=== PATIENT | male | born 1960 | race Caucasian/White ===

== ENCOUNTER 2019-12-27 16:53 | Inpatient (IN) | payer MEDICARE, SELFPAY ==
[2019-12-27] VITALS (16 sets, daily range): BP systolic 85–138; BP diastolic 58–97; PULSE 85–106; RESP 15–20; TEMP 36.6–37.2; O2SAT 96–100; BMI 26.6; BMI 28.1
--- NOTE | 2019-12-27 17:05 | CT_ITS ---
PROCEDURE: CT ABDOMEN PELVIS WO CON CLINICAL INDICATION: WEAK Diarrhea, weakness, fever COMPARISON: No exams were available for comparison TECHNIQUE: Axial images obtained with sagittal and coronal reformats. All CT scans at the facility use one or more dose reduction, viz: automated exposure control, ma/kV adjustment per patient size (including targeted exams where dose is matched to indication, i.e. head), or iterative reconstruction technique. FINDINGS: The liver has an unremarkable appearance other than low-density changes near the falciform ligament which may be due to fatty infiltration. The gallbladder is distended with some increased density which may be due to sludge with small stones. Ultrasound may confirm. The spleen, adrenal glands, pancreas, and kidneys have an unremarkable appearance. No evidence of appendicitis. There is a small umbilical hernia containing fat. There is colonic diverticulosis but no evidence of diverticulitis. Guillory catheter is present. The there is mild ectasia of the infrarenal abdominal aorta measuring up to 2.4 cm. IMPRESSION: Distended gallbladder with possible sludge/stones. Gallbladder ultrasound may provide further evaluation. Colonic diverticulosis without diverticulitis. Dictated by: Ron Mercedes MD 12/28/2019 07:46 Electronically signed by Ron Mercedes MD in [place] 12/28/2019 07:46
--- NOTE | 2019-12-27 17:06 | CT_ITS ---
PROCEDURE: CT CHEST WO CON CLINICAL INDICATION: FEVER Shortness of breath, fever, weakness COMPARISON: CT ABDOMEN PELVIS WO CON from 12/27/2019 TECHNIQUE: Axial images obtained with sagittal and coronal reformats. All CT scans at the facility use one or more dose reduction, viz: automated exposure control, ma/kV adjustment per patient size (including targeted exams where dose is matched to indication, i.e. head), or iterative reconstruction technique. FINDINGS: HEART AND MEDIASTINAL STRUCTURES: The left lobe of the thyroid gland is enlarged with a hypodense nodule measuring 3 cm. There is mild compression upon the trachea with mild tracheal shift to the right. Suggest ultrasound for further evaluation. No adenopathy apparent. There is severe coronary artery calcification noted. LUNGS AND PLEURAL SPACES: COPD. In the left upper lobe there is a cluster of nodules in the posterior segment associated with an irregular density. The small nodules measure up to 6 mm. There air Passy has a stellate appearance measuring up to 7 mm centrally but with small irregular striations extending from this region. This could be due to scar or neoplasm. Multiple soft tissue nodules are present in the left lower lobe. These are difficult to measure due to their conglomerate nature but measure up to 3 cm by 1.7 cm. There is some scarring/atelectatic change in left lung base posteriorly and inferiorly. There is a 5 mm nodule in the left apex. Patchy atelectasis or infiltrate noted in the superior segment of the right lower lobe with a subpleural nodule in this region measuring 5 mm. No effusions are evident. There is some mild left basilar bronchiectasis with bronchial thickening in the left lung base BONY STRUCTURES: There are old right-sided rib fractures. There is deformity of both humeral heads and glenoid fossa possibly due to Charcot joint with moderate-sized effusions in the shoulder joints. UPPER ABDOMEN: Unremarkable. ADDITIONAL FINDINGS: No other significant abnormalities. IMPRESSION: 1. Left-sided pulmonary nodules the largest in the lower lobes. Neoplasm is considered. Possible metastatic disease. Infection/inflammation changes also consideration. Consider bronchoscopy. 2. Bronchiectatic changes in the left lower lobe posteriorly with bronchial thickening with COPD 3. Enlarged left lobe of the thyroid gland with left thyroid nodule. Consider ultrasound. 4. Deformity of the glenohumeral joint bilaterally with bony resorption of the humeral heads and prominent shoulder joint effusions. Consider Charcot/neuro trophic joint Dictated by: Ron Mercedes MD 12/28/2019 07:41 Electronically signed by Ron Mercedes MD in [place] 12/28/2019 07:42
[2019-12-27 17:15] LABS: Adenovirus,PCR Not Detected (NotDetected); Bordetella Pertussis Not Detected (NotDetected); Chlamydophila Pneumoniae, PCR Not Detected (NotDetected); Coronavirus 19, PCR Not Detected (NotDetected); Coronavirus 229E Not Detected (NotDetected); Coronavirus NL63 Not Detected (NotDetected); Coronavirus OC43 Not Detected (NotDetected); Coronovirus HKU1,PCR Not Detected (NotDetected); Human Metapneumovirus Not Detected (NotDetected); Influenza A, PCR Not Detected (NotDetected); Influenza AH1, 2009 Not Detected (NotDetected); Influenza AH1, PCR Not Detected (NotDetected); Influenza AH3,PCR Not Detected (NotDetected); Influenza B, PCR Not Detected (NotDetected); Mycoplasma Pneumoniae, PCR Not Detected (NotDected); Parainfluenza 1, PCR Not Detected (NotDetected); Parainfluenza 2, PCR Not Detected (NotDetected); Parainfluenza 3, PCR Not Detected (NotDetected); Parainfluenza 4, PCR Not Detected (NotDetected); Respiratory Syncytial Virus Not Detected (NotDetected); Rhinovirus/Enterovirus Not Detected (NotDetected)
[2019-12-27 17:40] LABS: Microscopic, Urine URINE MICROSCOPIC (MICROSCOPIC)
[2019-12-27 17:42] LABS: Basophils % 0.4 % (0.1-2.0); Eosinophils # 0.1 K/mm3 (0.0-0.4); Eosinophils % 0.7 % (0.1-12.0); Hematocrit 38.4 % (42.0-52.0); Hemoglobin 12.1 g/dL (14.1-18.0); Lymphocytes # 2.2 K/mm3 (0.7-4.5); Lymphocytes % 21.9 % (10-50); Mean Corpuscular HGB Conc 31.5 g/dL (31.8-35.4); Mean Corpuscular Hemoglobin 29.7 pg (27.0-31.2); Mean Corpuscular Volume 94.3 fl (80-94); Mean Platelet Volume 8.5 fl (7.4-10.4); Monocytes # 0.4 K/mm3 (0.1-1.0); Neutrophils # 7.4 K/mm3 (1.8-7.8); Platelet Count 212 K/mm3 (142-424); Red Blood Count 4.07 M/mm3 (4.60-6.20); Red Cell Distribution Width 18.5 % (11.5-17.5); White Blood Count 10.2 K/mm3 (4.8-10.8)
[2019-12-27 17:45] LABS: Appearance,Urine CLOUDY (Clear); Bilirubin,Urine Negative (Negative); Blood, Urine TRACE-I (Negative); Color,Urine YELLOW (Yellow); Glucose,Urine (UA) Negative (Negative); Ketones,Urine Negative (Negative); Leukocyte Esterase,Urine 2+ (Negative); Nitrate,Urine Negative (Negative); PH,Urine 6.5 (5.0-8.5); Protein,Urine 1+ (Negative); Specific Gravity, Urine 1.015 (1.005-1.030); Urobilinogen,Urine 0.2 EU/dl (0.2)
[2019-12-27 17:48] LABS: Amorphous Sediment,Urine 2+ /lpf; WBC,Urine 50-100 #/hpf (0-3)
--- NOTE | 2019-12-27 18:00 | PC.NURSE ---
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 After coming to the pt beside in rad pt had just come to. Pt was pale and diaphoretic stated he felt like he had just passed out. Phone MD and verbal consent for CT was obtained.
--- NOTE | 2019-12-27 18:03 | CT_ITS ---
PROCEDURE: CT HEAD/BRAIN WO CON CLINICAL INDICATION: SEIZURE COMPARISON: No exams were available for comparison TECHNIQUE: Axial images obtained. All CT scans at the facility use one or more dose reduction, viz: automated exposure control, ma/kV adjustment per patient size (including targeted exams where dose is matched to indication, i.e. head), or iterative reconstruction technique. FINDINGS: No midline shift, mass effect, intracranial hemorrhage, hydrocephalus, or extra-axial fluid collection is evident. The calvarium has an unremarkable appearance. No mastoid effusion. No sinus air-fluid level. IMPRESSION: No acute intracranial finding Dictated by: Ron Mercedes MD 12/28/2019 07:17 Electronically signed by Ron Mercedes MD in [place] 12/28/2019 07:17
[2019-12-27 18:06] LABS: Erythrocyte Sedimentation Rate 19 mm/hr (0-20)
--- NOTE | 2019-12-27 18:37 | ECG_ITS ---
APPROVED REPORT Exam: Resting ECG HR:95 bpm ECG Measurements Heart Rate 95 AXES UT 148 P 21 QRSd 128 QRS -66 QT 404 T -18 QTc 507 <Conclusion> Normal sinus rhythm Left axis deviation Right bundle branch block Abnormal ECG Electronically signed by : Antonio Lauren, 01/01/2020 17:13:21
[2019-12-27 18:53] LABS: Chloride 108 mmol/L (98-107); Potassium 4.3 mmoL/L (3.5-5.1); Sodium 138 mmol/L (136-145)
[2019-12-27 18:56] LABS: Alanine Aminotransferase 28 U/L (12-78); Albumin Level 3.4 g/dl (3.5-5.0); Albumin/Globulin Ratio 1.3 (1.1-1.8); Alkaline Phosphatase 103 U/L (38-126); Anion Gap 16.3 mEq/L (5-15); Aspartate Amino Transferase 39 U/L (17-59); Bilirubin,Total 0.5 mg/dl (0.2-1.3); Blood Urea Nitrogen 9 mg/dl (9-20); Calcium 8.4 mg/dl (8.4-10.2); Carbon Dioxide 18 mmol/L (22.0-30.0); Creatinine Clearance Estimated 107 mL/min (50-200); Estimated Glomerular Filt Rate 99 ml/min (>60); GFR (African American) 119 ML/MIN (>60); Globulin 2.7 g/dL (1.3-3.2); Glucose 110 mg/dl (74-100); Total Protein,Serum 6.1 g/dl (6.3-8.2)
[2019-12-27 19:02] LABS: C-Reactive Protein 18.8 mg/L (0-4)
[2019-12-27 19:11] LABS: Troponin I 0.61 ng/ml (0.00-0.034)
--- NOTE | 2019-12-27 19:13 | PC.NURSE ---
Levophed started at 5mcg/min, pt provided ice chips, no needs at this time
--- NOTE | 2019-12-27 19:15 | PC.NURSE ---
Decubitus noted to taylor. heels and coccyx. Heels dressed with vasiline soaked gauze.
--- NOTE | 2019-12-27 19:21 | HMH.EDWEAK ---
ED Disposition Clinical Impression: UTI (urinary tract infection), Hypotension, SIRS (systemic inflammatory response syndrome), Pulmonary emboli Disposition: Admitted as Observation Condition on Discharge: Serious Referrals: Jose R Moreira [Primary Care Provider] - - Critical Care Critical Care Time: Yes Attestation: On 12/27/19, the high probability of a clinically significant, sudden or life threatening deterioration of the following system(s) required my full and direct attention, intervention and personal management. The time I documented below is in addition to time spent performing reported procedures but includes the following listed in this critical care notation. Total Critical Care Time: 55 Vital system(s) involved:: Circulatory Failure, Shock (Septic) My critical care processes included: Assessment & monitoring of V/S, Initial and Re-exams, Data Review/Interpretation, Coordinating Care, Medication Orders and management, Documentation Medical Decision Making - Medical Records Medical records reviewed: Yes: I reviewed the patient's medical records. - Lv Inquiry Pt receiving controlled substance: No Vital Signs: 12/27/19 16:54 12/27/19 17:24 12/27/19 18:00 Temperature 99 F Temperature Source Oral Pulse Rate [Right] 104 H 96 H 96 H Respiratory Rate 20 20 20 Blood Pressure [Right Arm] 96/68 L 90/58 L 93/69 L Blood Pressure Mean [Right Arm] 77 68 77 Blood Pressure Source [Right Arm] Automatic Cuff Blood Pressure Position [Right Arm] Sitting 02 Sat by Pulse Oximetry 100 98 98 Oxygen Delivery Method Nasal Cannula Room Air Nasal Cannula Oxygen Flow Rate (LPM) 2 12/27/19 19:14 Temperature Temperature Source Pulse Rate [Right] 95 H Respiratory Rate 15 Blood Pressure [Right Arm] 89/66 L Blood Pressure Mean [Right Arm] 73 Blood Pressure Source [Right Arm] Blood Pressure Position [Right Arm] 02 Sat by Pulse Oximetry 97 Oxygen Delivery Method Nasal Cannula Oxygen Flow Rate (LPM) 2 - Lab Data Lab results reviewed: Yes: I reviewed the patient's lab results. Lab Results 12/27/19 17:10: Chlamy pneumoniae PCR Not detected, Adenovirus (PCR) Not detected, B. pertussis DNA (PCR) Not detected, Coronavirus OC43 (PCR) Not detected, Coronavirus HKU1 (PCR) Not detected, Coronavirus 229E (PCR) Not detected, COVID-19 PCR Not detected, Coronavirus NL63 (PCR) Not detected, Human Metapneumovir PCR Not detected, Influenza A (H1) PCR Not detected, Influ A (H1N1/09) PCR Not detected, Influenza A (H3) PCR Not detected, Influenza Type A (PCR) Not detected, Influenza Type B (PCR) Not detected, M. pneumoniae (PCR) Not detected, Parainfluenza 1 (PCR) Not detected, Parainfluenza 2 (PCR) Not detected, Parainfluenza 3 (PCR) Not detected, Parainfluenza 4 (PCR) Not detected, RSV (PCR) Not detected, Entero/Rhino (PCR) Not detected 12/27/19 17:25: WBC 10.2, RBC 4.07 L, Hgb 12.1 L, Hct 38.4 L, MCV 94.3 H, MCH 29.7, MCHC 31.5 L, RDW 18.5 H, Plt Count 212, MPV 8.5, Neut % (Auto) 73.0, Lymph % (Auto) 21.9, Emery % (Auto) 4.0, Eos % (Auto) 0.7, Baso % (Auto) 0.4, Neut # (Auto) 7.4, Lymph # (Auto) 2.2, Emery # (Auto) 0.4, Eos # (Auto) 0.1, Baso # (Auto) 0.0, ESR 19 12/27/19 17:25: Lactate 2.0 12/27/19 17:35: Urine Color Yellow, Urine Appearance Cloudy, Urine pH 6.5, Ur Specific [place] 1.015, Urine Protein 1+, Urine Glucose (UA) Negative, Urine Ketones Negative, Urine Blood Trace-i, Urine Nitrate Negative, Urine Bilirubin Negative, Urine Urobilinogen 0.2, Ur Leukocyte Esterase 2+ A, Urine RBC 3-5, Urine WBC 50-100, Amorphous Sediment 2+ 12/27/19 18:40: Sodium 138, Potassium 4.3, Chloride 108 H, Carbon Dioxide 18 L, Anion Gap 16.3 H, BUN 9, Creatinine 0.80, Estimated Creat Clear 107, Estimated GFR 99, Est GFR ( Amer) 119, Glucose 110 H, Calcium 8.4, Total Bilirubin 0.5, AST 39, ALT 28, Alkaline Phosphatase 103, Troponin I 0.61 H, C-Reactive Protein 18.8 H, Total Protein 6.1 L, Albumin 3.4 L, Globulin 2.7, Albumin/Globulin Ratio 1.3 Re
--- NOTE | 2019-12-27 19:23 | ECG_ITS ---
APPROVED REPORT Exam: Resting ECG HR:93 bpm ECG Measurements Heart Rate 93 AXES IA 150 P 30 QRSd 124 QRS -69 QT 392 T -31 QTc 487 <Conclusion> Normal sinus rhythm Left axis deviation Right bundle branch block Old inferior changes Abnormal ECG Electronically signed by : Antonio Lauren, 01/01/2020 17:13:18
--- NOTE | 2019-12-27 19:26 | PC.NURSE ---
EKGs sent to Dr. Anderson .
--- NOTE | 2019-12-27 19:27 | PC.NURSE ---
speaking with Dr. Anderson.
--- NOTE | 2019-12-27 19:29 | PC.NURSE ---
Consulting with Dr. Lauren.
--- NOTE | 2019-12-27 19:30 | PC.NURSE ---
pt Levophed increased from 5mcg/min to 10 mcg/min
--- NOTE | 2019-12-27 20:15 | PC.NURSE ---
Increased Nitro gtt to 30 mcg/min
--- NOTE | 2019-12-27 21:08 | PC.NURSE ---
levophed gtt decreased to 5 mcg/min
--- NOTE | 2019-12-27 21:37 | PC.NURSE ---
Levophed decreased to 2 mcg/min
--- NOTE | 2019-12-27 21:49 | PC.NURSE ---
Levophed turned off at this time.
--- NOTE | 2019-12-27 22:09 | PC.NURSE ---
patient up to floor via stretcher.
[2019-12-27 22:15] LABS: Troponin I 0.69 ng/ml (0.00-0.034)
[2019-12-28] VITALS (21 sets, daily range): BP systolic 76–120; BP diastolic 49–91; PULSE 90–117; RESP 16–24; TEMP 36.6–37.1; O2SAT 90–97; BMI 29.3
--- NOTE | 2019-12-28 03:07 | PC.NURSE ---
Pt awake, currently resting in bed. Arrived to floor off Levophed gtt. Was DC in ER. Pt BP has been stable since arrival to floor. Currently 100/82. P 93. He has remained sinus Tach on telemetry with BBB. Pt has c/o soa at times this shift. It has been noted while pt has experienced increased soa, pt position in bed would be probable cause. Pt repositioned t/o shift. O2 sats have remained mid to upper 90s. He is currently on 2L O2 NC. notified early in shift of elevated troponins. Additional troponin cancelled. Pt requested to have home medication, gabapentin 800 mg and suboxone 4 mg. also notified that pt was not ordered maintenance fluids. New orders: Gabapentin 400 mg PO one time due to previous hypertension. Subutex 4 mg PO. LR @ 200 ml/hr. F/C draining to bedside. Call light within reach, seizure pads in place. Family remains at bedside. Will continue to monitor.
[2019-12-28 05:41] LABS: Basophils # 0.1 K/mm3 (0-0.2); Basophils % 0.3 % (0.1-2.0); Eosinophils # 0.1 K/mm3 (0.0-0.4); Eosinophils % 0.7 % (0.1-12.0); Hemoglobin 12.2 g/dL (14.1-18.0); Lymphocytes # 2.6 K/mm3 (0.7-4.5); Lymphocytes % 18.6 % (10-50); Mean Corpuscular HGB Conc 31.3 g/dL (31.8-35.4); Mean Corpuscular Hemoglobin 29.6 pg (27.0-31.2); Mean Corpuscular Volume 94.6 fl (80-94); Mean Platelet Volume 7.9 fl (7.4-10.4); Monocytes # 0.8 K/mm3 (0.1-1.0); Neutrophils # 10.4 K/mm3 (1.8-7.8); Neutrophils % 74.4 % (37.0-80.0); Platelet Count 189 K/mm3 (142-424); Red Blood Count 4.12 M/mm3 (4.60-6.20); Red Cell Distribution Width 18.3 % (11.5-17.5); White Blood Count 13.9 K/mm3 (4.8-10.8)
[2019-12-28 06:01] LABS: Alanine Aminotransferase 49 U/L (12-78); Albumin Level 3.5 g/dl (3.5-5.0); Albumin/Globulin Ratio 1.3 (1.1-1.8); Alkaline Phosphatase 116 U/L (38-126); Anion Gap 18.3 mEq/L (5-15); Aspartate Amino Transferase 70 U/L (17-59); Bilirubin,Total 0.5 mg/dl (0.2-1.3); Blood Urea Nitrogen 8 mg/dl (9-20); Calcium 9.1 mg/dl (8.4-10.2); Carbon Dioxide 19 mmol/L (22.0-30.0); Chloride 105 mmol/L (98-107); Creatinine Clearance Estimated 135 mL/min (50-200); Estimated Glomerular Filt Rate 115 ml/min (>60); GFR (African American) 139 ML/MIN (>60); Globulin 2.6 g/dL (1.3-3.2); Potassium 4.3 mmoL/L (3.5-5.1); Sodium 138 mmol/L (136-145); Total Protein,Serum 6.1 g/dl (6.3-8.2)
[2019-12-28 06:05] LABS: Glucose 87 mg/dl (74-100)
--- NOTE | 2019-12-28 08:05 | CT_ITS ---
PROCEDURE: CT ANGIO CHEST CLINCIAL INDICATION: dyspnea/hypoxia Dyspnea, hypoxia COMPARISON: CT CHEST WO NUBIA from 12/27/2019 TECHNIQUE: IV Contrast: 70ML OPTIRAY 350 Axial images obtained with sagittal and coronal reformats. All CT scans at the facility use one or more dose reduction, viz: automated exposure control, ma/kV adjustment per patient size (including targeted exams where dose is matched to indication, i.e. head), or iterative reconstruction technique. FINDINGS: There is acute bilateral pulmonary emboli. A small saddle embolus is present in the bifurcation of the main pulmonary artery with moderate pulmonary emboli within the distal aspect of the right main pulmonary artery and in the upper and lower branches as well as the distal aspect of the left main pulmonary artery also in upper and lower lobe branches. There is flattening of the interventricular septum. There is only minimal amount of reflux into the IVC however, IVC is mildly enlarged which may indicate some degree of right heart strain. IVC measures up to 3 cm. There is now small right pleural effusion. There has been no significant change in the previously described pulmonary nodules in the left lower lobe. There is trace left effusion is well with mild atelectatic changes in the lung bases. The patchy density is noted in the upper lobes posteriorly and in the superior segment of the right lower lobe. Enlarged left lobe of the thyroid gland with 3 cm nodule. Bilateral Charcot joints of the shoulders. There are old right-sided rib fractures. Gallbladder is distended with some increased density in the gallbladder which may be due to sludge and/or stones. IMPRESSION: 1. Acute moderate bilateral pulmonary emboli with questionable right heart strain. There is a small saddle embolus which extends into the bifurcation of both main pulmonary arteries and into the proximal upper and lower lobe branches 2. Trace right effusion. 3. Multiple left lower lobe nodular opacities which could be neoplastic or infectious/inflammatory. 4. Enlarged left lobe of the thyroid gland with 3 cm nodule. 5. Bilateral Charcot joint of the shoulders 6. The report was given to Maria Dolores Khan on 2nd floor 12/28/2019 at 10 a.m. Dictated by: Ron Mercedes MD 12/28/2019 10:02 Electronically signed by Ron Mercedes MD in [place] 12/28/2019 10:02
--- NOTE | 2019-12-28 08:08 | HMH.HP ---
*Admission Date: 12/27/19 *Chief complaint: Hypotension/dyspnea *History of present illness: 59-year-old white male with significant medical history of multiple immunosuppressive diseases including rheumatoid arthritis, Sjogren's syndrome, along with chronic Suboxone dependence and history of multiple neuropathy type symptoms. He notes that over the past week or so he has had progressive dyspnea, feelings of increasing anxiety and problems breathing when sleeping. [place] so badly in regards to the breathing issues that he came to the emergency department late yesterday. Found to be hypotensive, tachycardic, met sepsis criteria, found to have source of infection in his urinary tract. Patient has a history of BPH, takes alpha blockade for this and notes he chronically has problems voiding. Patient was also found to have elevated troponins. Cardiology was consulted by phone who recommended treating patient for PE and patient was given a dose of Lovenox. CT scan of chest showed nodules which patient is aware of and his primary physician in [place] is also aware of. CT otherwise was unremarkable, however this was a noncontrast CT scan. D-dimer was not done. Patient was admitted to stepdown unit with intravenous fluids and after 30 mg/kg bolus for hypotensive sepsis issues was given he was still hypotensive and Levophed was started for several hours. Before leaving the ER this was able to be discontinued. Patient is currently on stepdown unit here on second floor. He feels better, but continues to struggle with breathing, especially when he tries to go to sleep and reports that he is having some chest pressure. [facility] History I have reviewed the patient's past medical history: Yes Medical History: Reports:: Atrial Fibrillation, Hypertension Denies:: Cancer, Diabetes Mellitus Type 1, Diabetes Mellitus Type 2 *Have you ever received a pneumonia vaccine?: Yes *Have you received a flu vaccine this season?: Yes Other Medical History: Reports: Arthritis, Fibromyalgia Comment:: Patient has a history of negative cardiac work-up 3 or 4 years ago Other Surgeries: Yes: Colonoscopy, Colon Resection - *Social History Smoking Status: Current every day smoker Tobacco Type: cigarettes # Packs/Day (cigarettes): 2 Alcohol Intake: never Substance Use Type: prescription drug *Occupational Status:: disabled *Travel in the last 8 weeks: None Family Hx:: Cancer, Coronary Artery Disease, Diabetes, Heart Attack, Hyperlipidemia, Hypertension, Substance abuse, Mental illness Review of Systems - Review of Systems Review of systems:: pertinent systems reviewed and negative unless documented below - Constitutional Reports fever(s), Reports weakness - ENT Denies abnormal hearing, Denies poor balance - *Cardiovascular Reports chest pain, Reports shortness of breath, Reports shortness of breath with activity - *Respiratory Reports shortness of breath with activity - *Gastrointestinal Reports abdominal pain - *Genitourinary Reports difficulty urinating Meds Home Medications Medication Instructions Recorded Confirmed Type Buprenorphine HCl/Naloxone HCl 1.5 each SL DAILY 12/27/19 12/27/19 History [Suboxone 8 mg-2 mg Sl Film] Gabapentin [Neurontin 800mg Tab] 800 mg PO QID 12/27/19 12/27/19 History Hydroxychloroquine Sulfate 200 mg PO BID 12/27/19 12/27/19 History [Plaquenil 200mg tablet] Nebivolol HCl [Bystolic] 10 mg PO DAILY 12/27/19 12/27/19 History Terazosin HCl [Hytrin 5mg capsule] 5 mg PO BID 12/27/19 12/27/19 History predniSONE [Deltasone 10mg 10 mg PO DAILY 12/27/19 12/27/19 History tablet] Allergies Allergy/AdvReac Type Severity Reaction Status Date / Time NSAIDS (Non-Steroidal Allergy Verified 12/27/19 17:05 Anti-Inflamma Penicillins Allergy Verified 12/27/19 17:05 Sulfa (Sulfonamide Allergy Verified 12/27/19 17:05 Antibiotics) Exam Vital signs and Labs for Last 24 Hours: Temp Pulse Re
[2019-12-28 11:30] LABS: Activated Partial Thrombo Time 24.8 seconds (23.6-34.0)
--- NOTE | 2019-12-28 11:49 | P.CONPHA_ITS ---
[facility] Pharmacy VTE Monitoring - Patient Demographics Admission date: 12/28/19 Report Date: 12/28/19 Time: 11:50 Allergies/Adverse Reactions: Patient Allergies NSAIDS (Non-Steroidal Anti-Inflamma Allergy (Verified 12/27/19 17:05) Penicillins Allergy (Verified 12/27/19 17:05) Sulfa (Sulfonamide Antibiotics) Allergy (Verified 12/27/19 17:05) Height: 1.7 m Weight: 84.822 kg Patient Problems: Current Active Problems UTI (urinary tract infection) (Acute) Hypotension (Acute) SIRS (systemic inflammatory response syndrome) (Acute) Pulmonary emboli (Acute) Non-STEMI (non-ST elevated myocardial infarction) (Acute) Dyspnea (Acute) Hypoxia (Acute) - VTE Risk Labs: VTE Related Lab Results Hgb 12.2 g/dL (14.1-18.0) L 12/28/19 05:25 Hct 39.0 % (42.0-52.0) L 12/28/19 05:25 Plt Count 189 K/mm3 (142-424) 12/28/19 05:25 APTT 24.8 seconds (23.6-34.0) 12/28/19 11:00 BUN 8 mg/dl (9-20) L 12/28/19 05:25 Creatinine 0.70 mg/dl (0.66-1.25) 12/28/19 05:25 Estimated Creat Clear 135 mL/min (50-200) 12/28/19 05:25 VTE Risk Level: High Risk - Prophylaxis Types of VTE Prophylaxis: Pharmacological Location of Applied Device: Not Applicable - VTE Diagnosis Confirmed Treatment or plan recommended: Add Heparin, Add other medication (HEPARIN AND XARELTO ORDERED BY )
--- NOTE | 2019-12-28 11:52 | HMH.PHAHEP ---
[facility] Pharmacy Heparin Dosing - Demographic Data Admission date:: 12/28/19 Date: 12/28/19 Time: 11:52 Allergies/Adverse Reactions: Allergies Allergy/AdvReac Type Severity Reaction Status Date / Time NSAIDS (Non-Steroidal Allergy Verified 12/27/19 17:05 Anti-Inflamma Penicillins Allergy Verified 12/27/19 17:05 Sulfa (Sulfonamide Allergy Verified 12/27/19 17:05 Antibiotics) Height: 1.7 m Weight: 84.822 kg - Indication Medication therapy:: Heparin ( ALSO STARTING XARELTO) Patient Problems: Current Active Problems UTI (urinary tract infection) (Acute) Hypotension (Acute) SIRS (systemic inflammatory response syndrome) (Acute) Pulmonary emboli (Acute) Non-STEMI (non-ST elevated myocardial infarction) (Acute) Dyspnea (Acute) Hypoxia (Acute) CVA?: No Bleeding problem?: No Kidney disease?: No SD?: No Desired PTT range:: 60-80 seconds - Labs Anticoagulation Lab Results:: 12/27/19 12/28/19 17:25 05:25 Hgb 12.1 L 12.2 L Hct 38.4 L 39.0 L Plt Count 212 189 - Monitoring Dose Monitor 1 Date: 12/28/19 Time: 11:53 PTT Result:: 24.8 Infusion Rate:: 1300 UNITS/HR (26 ML/HR) Comment:: 5000 UNIT BOLUS - Core Measures Is INR > or = 2 at discharge?: No Most Recent Labs:: Laboratory Results - last 24 hr 12/27/19 17:10: Chlamy pneumoniae PCR Not detected, Adenovirus (PCR) Not detected, B. pertussis DNA (PCR) Not detected, Coronavirus OC43 (PCR) Not detected, Coronavirus HKU1 (PCR) Not detected, Coronavirus 229E (PCR) Not detected, COVID-19 PCR Not detected, Coronavirus NL63 (PCR) Not detected, Human Metapneumovir PCR Not detected, Influenza A (H1) PCR Not detected, Influ A (H1N1/09) PCR Not detected, Influenza A (H3) PCR Not detected, Influenza Type A (PCR) Not detected, Influenza Type B (PCR) Not detected, M. pneumoniae (PCR) Not detected, Parainfluenza 1 (PCR) Not detected, Parainfluenza 2 (PCR) Not detected, Parainfluenza 3 (PCR) Not detected, Parainfluenza 4 (PCR) Not detected, RSV (PCR) Not detected, Entero/Rhino (PCR) Not detected 12/27/19 17:25: WBC 10.2, RBC 4.07 L, Hgb 12.1 L, Hct 38.4 L, MCV 94.3 H, MCH 29.7, MCHC 31.5 L, RDW 18.5 H, Plt Count 212, MPV 8.5, Neut % (Auto) 73.0, Lymph % (Auto) 21.9, [place] % (Auto) 4.0, Eos % (Auto) 0.7, Baso % (Auto) 0.4, Neut # (Auto) 7.4, Lymph # (Auto) 2.2, [place] # (Auto) 0.4, Eos # (Auto) 0.1, Baso # (Auto) 0.0, ESR 19 12/27/19 17:25: Lactate 2.0 12/27/19 17:35: Urine Color Yellow, Urine Appearance Cloudy, Urine pH 6.5, Ur Specific [place] 1.015, Urine Protein 1+, Urine Glucose (UA) Negative, Urine Ketones Negative, Urine Blood Trace-i, Urine Nitrate Negative, Urine Bilirubin Negative, Urine Urobilinogen 0.2, Ur Leukocyte Esterase 2+ A, Urine RBC 3-5, Urine WBC 50-100, Amorphous Sediment 2+ 12/27/19 18:40: Sodium 138, Potassium 4.3, Chloride 108 H, Carbon Dioxide 18 L, Anion Gap 16.3 H, BUN 9, Creatinine 0.80, Estimated Creat Clear 107, Estimated GFR 99, Est GFR ( Amer) 119, Glucose 110 H, Calcium 8.4, Total Bilirubin 0.5, AST 39, ALT 28, Alkaline Phosphatase 103, Troponin I 0.61 H, C-Reactive Protein 18.8 H, Total Protein 6.1 L, Albumin 3.4 L, Globulin 2.7, Albumin/Globulin Ratio 1.3 12/27/19 21:40: Troponin I 0.69 H 12/28/19 05:25: WBC 13.9 H D, RBC 4.12 L, Hgb 12.2 L, Hct 39.0 L, MCV 94.6 H, MCH 29.6, MCHC 31.3 L, RDW 18.3 H, Plt Count 189, MPV 7.9, Neut % (Auto) 74.4, Lymph % (Auto) 18.6, [place] % (Auto) 6.0, Eos % (Auto) 0.7, Baso % (Auto) 0.3, Neut # (Auto) 10.4 H, Lymph # (Auto) 2.6, [place] # (Auto) 0.8, Eos # (Auto) 0.1, Baso # (Auto) 0.1 12/28/19 05:25: Sodium 138, Potassium 4.3, Chloride 105, Carbon Dioxide 19 L, Anion Gap 18.3 H, BUN 8 L, Creatinine 0.70, Estimated Creat Clear 135, Estimated GFR 115, Est GFR ( Amer) 139, Glucose 87 D, Calcium 9.1, Total Bilirubin 0.5, AST 70 H D, ALT 49 D, Alkaline Phosphatase 116, Total Protein 6.1 L, Albumin 3.5, Globulin 2.6, Albumin/Globulin Ratio 1.3 12/28/19 11:00: APTT 24.8 Were Heparin
--- NOTE | 2019-12-28 14:21 | PC.NURSE ---
1007- Notified Dr Lauren of CT chest results, moderate sized BL pulmonary emboli, small saddle embolus that extends into bifurcation of both pulmonary arteries, poosible right heart strain. Given order for heparin gtt to be dosed per pharmacy, start xarelto 15mg po BID, and increase rate of LR to 150ml/hr. 1110- baseline ptt drawn per lab, given 5000unit bolus of heparin IV and started on heparin drip at 1300units/hr per pharmacy dosing 1153- Notified Dr Lauren that patient is becoming hypotensive, his systolic had been in the 90's but have recently decreased to the high 80's with a MAP around 66 and is continuing to decrease, BP at current time 76/54, HR 95-115 MAP 63, given order to start levophed gtt and to give patient 1 liter bolus of Normal Saline, states he will speak with Dr Anderson for further recommendations 1155- Dr Lauren called to state that Dr Anderson recommends to transfer patient to and he will contact them to initiate transfer 1205- Levophed gtt started at 8mcg, current BP 85/49 MAP 67 1228- Dr Lauren called with bed update from , patient has been accepted by Dr Mando Maddox and has a bed assignment at in ICU, patient will need to be transported per helicopter 1230- called with bed assignment, patient will be transferred to 8th Floor ICU [facility] Room 230 1236- Attempt made to call report, Ekta RN states to call back in 10 minutes for report 1246- Second attempt to call report made at this time, Ekta RN states she is with another patient, to call back in 15 minutes, informed Ekta that I would be calling helicopter for transport but would call back to give report 1250- BP decreasing 85/68, increased levophed to 10mcg 1302- Report called to Ekta ZAPATA at ICU, [facility] states 14 minute ETA 1330- [facility] arrived to floor for patient 1342- [facility] leaving floor with patient
--- NOTE | 2020-01-01 10:15 | [facility].DCSUM ---
General - General Admission date:: 12/27/19 Discharge date: 12/28/19 HPI HPI: 59-year-old white male with significant medical history of multiple immunosuppressive diseases including rheumatoid arthritis, Sjogren's syndrome, along with chronic Suboxone dependence and history of multiple neuropathy type symptoms. He notes that over the past week or so he has had progressive dyspnea, feelings of increasing anxiety and problems breathing when sleeping. [place] so badly in regards to the breathing issues that he came to the emergency department late yesterday. Found to be hypotensive, tachycardic, met sepsis criteria, found to have source of infection in his urinary tract. Patient has a history of BPH, takes alpha blockade for this and notes he chronically has problems voiding. Patient was also found to have elevated troponins. Cardiology was consulted by phone who recommended treating patient for PE and patient was given a dose of Lovenox. CT scan of chest showed nodules which patient is aware of and his primary physician in [place] is also aware of. CT otherwise was unremarkable, however this was a noncontrast CT scan. D-dimer was not done. Patient was admitted to stepdown unit with intravenous fluids and after 30 mg/kg bolus for hypotensive sepsis issues was given he was still hypotensive and Levophed was started for several hours. Before leaving the ER this was able to be discontinued. Patient is currently on stepdown unit here on second floor. He feels better, but continues to struggle with breathing, especially when he tries to go to sleep and reports that he is having some chest pressure. Hospital Course Hospital Course: After admission patient was noted to have continuing hypoxia and tachycardia, CT scan of chest with contrast was obtained which showed bilateral pulmonary embolism with saddle embolus and evidence of RV strain. Patient was treated with heparinization and Xarelto. Over the next couple of hours patient had worsening hypoxia status and the decision was made to transfer to cardiology service at [facility] for possible ECOS therapy for saddle embolism. Patient was transferred via helicopter to [facility]. Objective Vital signs: Temp Pulse Resp BP Pulse Ox 98.7 F 101 H 22 100/67 L 95 12/28/19 08:00 12/28/19 13:30 12/28/19 13:30 12/28/19 13:30 12/28/19 13:30 Narrative: - Constitutional chronically ill appearing - *Routine HEENT Exam Head: Present: normocephalic Eye: Present: EOMI ENT: Present: mucous membranes moist - *Routine Neck Exam Present: supple. Absent: JVD, carotid bruit - Routine Chest/Breast/Axilla Exam Chest wall: Absent: tenderness - *Routine Respiratory Exam Present: CTA bilaterally. Absent: accessory muscle use, prolonged expiratory phase - *Routine Cardiovascular Exam Present: RRR - *Routine Abdominal Exam Present: soft, normoactive bowel sounds. Absent: tenderness - *Routine Exam Comments: Guillory catheter in place, draining clear yellow urine - *Routine Extremities Exam Absent: cyanosis, clubbing, edema - *Routine Skin Exam Present: warm. Absent: rash - *Routine Neurological Exam Present: alert, oriented X3 Results Labs on day of discharge: Preliminary micro results at discharge 12/27/19 17:35 Urine Culture - Preliminary Urine,Catheterized Staphylococcus aureus#2 12/27/19 17:25 Blood Culture - Preliminary Blood NO GROWTH AFTER 48 HOURS 12/27/19 17:25 Blood Culture - Preliminary Blood NO GROWTH AFTER 48 HOURS DS: Diagnosis - Discharge Diagnosis (1) Non-STEMI (non-ST elevated myocardial infarction) Status: Acute (2) Dyspnea Status: Acute (3) Hypoxia Status: Acute (4) Hypotension Status: Acute (5) SIRS (systemic inflammatory response syndrome) Status: Acute (6) UTI (urinary tract infection) Status: Acute (7) Pulmonary e
== END 2019-12-28 13:42 | disposition short-term general hospital (02) | DRG 280 ==
LOC: ER 19:42 → 2ND 22:07
PROVIDERS: Admitting Provider Internal Medicine Adolescent Medicine; Emergency Provider Family Medicine; PCP Family Medicine; Visit Provider Internal Medicine Adolescent Medicine
DX: I21.4 Non-ST elevation (NSTEMI) myocardial infarction (principal); I26.92 Saddle embolus of pulmonary artery without acute cor pulmonale; R65.10 Systemic inflammatory response syndrome (SIRS) of non-infectious origin without acute organ dysfunction; N39.0 Urinary tract infection, site not specified; I10 Essential (primary) hypertension; I48.91 Unspecified atrial fibrillation; Z72.0 Tobacco use; B95.62 Methicillin resistant Staphylococcus aureus infection as the cause of diseases classified elsewhere; F11.11 Opioid abuse, in remission; Z79.899 Other long term (current) drug therapy; M06.9 Rheumatoid arthritis, unspecified; M35.00 Sjogren syndrome, unspecified
CPT/HCPCS: 36415; 70450; 71250; 71275; 74176; 80053; 81001; 83605; 84484; 85025; 85651; 85730; 86140; 87040; 87086; 87088; 87186; 87581; 87633; 87798; 93005; 96365; 96366; 96367; 96372; 99285; J0571; J1956; Q9967